=== PATIENT | female | born 1995 | race Caucasian/White ===

== ENCOUNTER 2018-04-01 13:27 | Emergency (ER) | payer OTHER ==
[2018-04-01] MEDS: NS 1,000 ML IV (14:30)
[2018-04-01 14:42] LABS: BASO # 0.1 10^3/uL (0.0-0.2); BASO % 0.8 % (0.0-1.0); EOS # 0.2 10^3/uL (0.0-0.50); EOS % 2.4 % (0.0-3.0); HEMATOCRIT 43.5 % (36.0-47.0); IMMATURE GRANULOCYTE % 0.1 % (0-3.0); LYMPH # 2.5 10^3/uL (1.5-6.5); LYMPH % 31.8 % (24.0-44.0); MEAN CORPUSCULAR HEMOGLOBIN 30.1 pg (27.0-33.0); MEAN CORPUSCULAR HGB CONC 34.5 g/dl (32.0-36.5); MEAN CORPUSCULAR VOLUME 87.3 fl (80.0-96.0); MONO # 0.5 10^3/uL (0.0-0.8); MONO % 5.8 % (0.0-5.0); NEUTROPHILS # 4.6 10^3/uL (1.8-7.7); NEUTROPHILS % 59.1 % (36.0-66.0); PLATELET COUNT, AUTOMATED 272 10^3/uL (150-450); RED BLOOD COUNT 4.98 10^6/uL (4.00-5.40); RED CELL DISTRIBUTION WIDTH 12.3 % (11.5-14.5); WHITE BLOOD COUNT 7.8 10^3/uL (4.0-10.0)
[2018-04-01 15:01] LABS: CONTROL LINE HCG INT CTR LINE PRESENT; HCG, SERUM QUALITATIVE NEGATIVE (NEGATIVE)
[2018-04-01 15:38] LABS: ANION GAP 7 MEQ/L (8-16); BLOOD UREA NITROGEN 8 MG/DL (7-18); CALCIUM LEVEL 9.1 MG/DL (8.5-10.1); CARBON DIOXIDE LEVEL 25 MEQ/L (21-32); CHLORIDE LEVEL 110 MEQ/L (98-107); CREATININE FOR GFR 0.73 MG/DL (0.55-1.30); GLOMERULAR FILTRATION RATE > 60.0 (>60); GLUCOSE, FASTING 89 MG/DL (70-100); MAGNESIUM LEVEL 2.3 MG/DL (1.8-2.4); POTASSIUM SERUM 3.9 MEQ/L (3.5-5.1); SODIUM LEVEL 142 MEQ/L (136-145); THYROID STIMULATING HORMONE 0.908 uIU/ML (0.358-3.740)
== END 2018-04-01 16:50 | disposition home or self-care (01) ==
LOC: M ED 13:27
DX: R42 Dizziness and giddiness (principal); H53.9 Unspecified visual disturbance; F17.210 Nicotine dependence, cigarettes, uncomplicated
CPT/HCPCS: 83735

== ENCOUNTER 2018-09-05 12:05 | Emergency (ER) | payer OTHER ==
[2018-09-05 12:39] LABS: BASO % 0.5 % (0.0-1.0); EOS # 0.2 10^3/uL (0.0-0.50); EOS % 1.9 % (0.0-3.0); IMMATURE GRANULOCYTE % 0.5 % (0-3.0); LYMPH # 1.8 10^3/uL (1.5-6.5); LYMPH % 23.5 % (24.0-44.0); MEAN CORPUSCULAR HEMOGLOBIN 30.5 pg (27.0-33.0); MEAN CORPUSCULAR HGB CONC 34.1 g/dl (32.0-36.5); MEAN CORPUSCULAR VOLUME 89.4 fl (80.0-96.0); MONO # 0.3 10^3/uL (0.0-0.8); NEUTROPHILS # 5.4 10^3/uL (1.8-7.7); NEUTROPHILS % 69.6 % (36.0-66.0); PLATELET COUNT, AUTOMATED 207 10^3/uL (150-450); RED BLOOD COUNT 4.92 10^6/uL (4.00-5.40); RED CELL DISTRIBUTION WIDTH 12.9 % (11.5-14.5); WHITE BLOOD COUNT 7.8 10^3/uL (4.0-10.0)
[2018-09-05 12:43] LABS: KETONE, URINE AUTO RFX NEGATIVE (NEGATIVE); LEUKOCYTE ESTERASE UR AUTO RFX NEGATIVE (NEGATIVE); NITRITE, URINE AUTO RFX NEGATIVE (NEGATIVE); RBC, URINE AUTO RFX 2 /HPF (0-3); SPECIFIC GRAVITY UR AUTO RFX 1.005 (1.002-1.035); SQUAM EPITHELIAL CELL UR AURFX 0 /HPF (0-6); WBC, URINE AUTO RFX 0 /HPF (0-3)
[2018-09-05 12:44] LABS: CONTROL LINE UCG INT CTR LINE PRESENT; URINE PREG TEST NEGATIVE (NEGATIVE)
[2018-09-05 12:54] LABS: PROTHROMBIN TIME 13.3 SECONDS (12.1-14.4)
[2018-09-05 12:55] LABS: PARTIAL THROMBOPLASTIN TIME 30.1 SECONDS (25.4-37.6)
[2018-09-05 13:07] LABS: ALBUMIN 4.5 GM/DL (3.2-5.2); ALBUMIN/GLOBULIN RATIO 1.45 (1.00-1.93); ALKALINE PHOSPHATASE 69 U/L (45-117); ALT/SGPT 13 U/L (12-78); AMYLASE 35 U/L (25-115); ANION GAP 9 MEQ/L (8-16); AST/SGOT 9 U/L (7-37); BILIRUBIN,DIRECT 0.1 MG/DL (0.0-0.2); BILIRUBIN,TOTAL 0.4 MG/DL (0.2-1.0); BLOOD UREA NITROGEN 9 MG/DL (7-18); CALCIUM LEVEL 9.2 MG/DL (8.5-10.1); CARBON DIOXIDE LEVEL 26 MEQ/L (21-32); CHLORIDE LEVEL 107 MEQ/L (98-107); CREATININE FOR GFR 0.63 MG/DL (0.55-1.30); GLOMERULAR FILTRATION RATE > 60.0 (>60); GLUCOSE, FASTING 98 MG/DL (70-100); LIPASE 191 U/L (73-393); SODIUM LEVEL 142 MEQ/L (136-145); TOTAL PROTEIN 7.6 GM/DL (6.4-8.2)
[2018-09-05] MEDS ORDERED: ISOVUE-370 76% 100ML VIAL (Q9967) As Ordered (13:56)
== END 2018-09-05 14:32 | disposition home or self-care (01) ==
LOC: M ED 12:05
DX: R10.84 Generalized abdominal pain (principal); R11.0 Nausea; F17.210 Nicotine dependence, cigarettes, uncomplicated
CPT/HCPCS: Q9967

== ENCOUNTER 2018-10-26 14:34 | Emergency (ER) | payer OTHER ==
[2018-10-26 15:15] LABS: KETONE, URINE AUTO RFX NEGATIVE (NEGATIVE); LEUKOCYTE ESTERASE UR AUTO RFX NEGATIVE (NEGATIVE); NITRITE, URINE AUTO RFX NEGATIVE (NEGATIVE); RBC, URINE AUTO RFX 1 /HPF (0-3); SPECIFIC GRAVITY UR AUTO RFX 1.004 (1.002-1.035); SQUAM EPITHELIAL CELL UR AURFX 0 /HPF (0-6); WBC, URINE AUTO RFX 1 /HPF (0-3)
[2018-10-26] MEDS: NS 1,000 ML IV (15:17)
[2018-10-26] MEDS: ONDANSETRON 4MG/2ML VIAL (J2405) IV (15:17)
[2018-10-26 15:23] LABS: BASO % 0.5 % (0.0-1.0); EOS # 0.1 10^3/uL (0.0-0.50); EOS % 1.4 % (0.0-3.0); HEMOGLOBIN 13.5 g/dl (12.0-15.5); IMMATURE GRANULOCYTE % 0.2 % (0-3.0); LYMPH # 1.2 10^3/uL (1.5-6.5); LYMPH % 27.3 % (24.0-44.0); MEAN CORPUSCULAR HEMOGLOBIN 30.3 pg (27.0-33.0); MEAN CORPUSCULAR HGB CONC 34.6 g/dl (32.0-36.5); MEAN CORPUSCULAR VOLUME 87.4 fl (80.0-96.0); MONO # 0.3 10^3/uL (0.0-0.8); MONO % 7.6 % (0.0-5.0); NEUTROPHILS # 2.7 10^3/uL (1.8-7.7); PLATELET COUNT, AUTOMATED 166 10^3/uL (150-450); RED BLOOD COUNT 4.46 10^6/uL (4.00-5.40); RED CELL DISTRIBUTION WIDTH 12.8 % (11.5-14.5); WHITE BLOOD COUNT 4.2 10^3/uL (4.0-10.0)
[2018-10-26 15:46] LABS: ALBUMIN 3.8 GM/DL (3.2-5.2); ALBUMIN/GLOBULIN RATIO 1.23 (1.00-1.93); ALKALINE PHOSPHATASE 67 U/L (45-117); ALT/SGPT 12 U/L (12-78); ANION GAP 10 MEQ/L (8-16); AST/SGOT 11 U/L (7-37); BILIRUBIN,DIRECT < 0.1 MG/DL (0.0-0.2); BILIRUBIN,TOTAL 0.3 MG/DL (0.2-1.0); BLOOD UREA NITROGEN 7 MG/DL (7-18); CALCIUM LEVEL 8.4 MG/DL (8.5-10.1); CARBON DIOXIDE LEVEL 21 MEQ/L (21-32); CHLORIDE LEVEL 109 MEQ/L (98-107); CREATININE FOR GFR 0.68 MG/DL (0.55-1.30); GLOMERULAR FILTRATION RATE > 60.0 (>60); GLUCOSE, FASTING 92 MG/DL (70-100); LIPASE 156 U/L (73-393); POTASSIUM SERUM 3.9 MEQ/L (3.5-5.1); SODIUM LEVEL 140 MEQ/L (136-145); TOTAL PROTEIN 6.9 GM/DL (6.4-8.2)
== END 2018-10-26 16:25 | disposition home or self-care (01) ==
LOC: M ED 14:34
DX: K52.9 Noninfective gastroenteritis and colitis, unspecified (principal)
CPT/HCPCS: J2405

== ENCOUNTER → 2019-03-01 | Outpatient (CLI) | payer OTHER ==
[~2019-03-01] MED LIST: ZOFR4TAB14 PO
[2019-03-01 17:53] LABS: BASO % 0.4 % (0.0-1.0); EOS # 0.1 10^3/uL (0.0-0.50); EOS % 0.8 % (0.0-3.0); HEMATOCRIT 37.3 % (36.0-47.0); HEMOGLOBIN 12.6 g/dl (12.0-15.5); LYMPH # 2.1 10^3/uL (1.5-6.5); LYMPH % 28.7 % (24.0-44.0); MEAN CORPUSCULAR HEMOGLOBIN 29.4 pg (27.0-33.0); MEAN CORPUSCULAR HGB CONC 33.8 g/dl (32.0-36.5); MEAN CORPUSCULAR VOLUME 87.1 fl (80.0-96.0); MONO # 0.4 10^3/uL (0.0-0.8); MONO % 5.3 % (0.0-5.0); NEUTROPHILS # 4.8 10^3/uL (1.8-7.7); NEUTROPHILS % 64.5 % (36.0-66.0); PLATELET COUNT, AUTOMATED 215 10^3/uL (150-450); RED BLOOD COUNT 4.28 10^6/uL (4.00-5.40); WHITE BLOOD COUNT 7.4 10^3/uL (4.0-10.0)
[2019-03-01 18:45] LABS: HEPATITIS C VIRUS ABY INDEX 0.1 INDEX (<0.8); HIV 1&2 SCREEN CENTAUR NEGATIVE (NEGATIVE); RUBELLA IgG QUALITATIVE IMMUNE (IMMUNE)
== END ==
LOC: M SMT 15:13
PROVIDERS: ATTEND Advanced Practice Midwife
DX: Z34.80 Encounter for supervision of other normal pregnancy, unspecified trimester (principal); Z3A.10 10 weeks gestation of pregnancy

== ENCOUNTER → 2019-03-01 | Outpatient (REF) | payer OTHER | LOC: M LAB REF 19:05 | PROVIDERS: ATTEND Advanced Practice Midwife | DX: Z12.4 Encounter for screening for malignant neoplasm of cervix (principal) ==

== ENCOUNTER → 2019-03-30 | Outpatient (REF) | payer OTHER ==
[2019-03-30 20:09] LABS: CHLAMYDIA DNA AMPLIFICATION NEGATIVE (NEGATIVE); GC DNA AMPLIFICATION NEGATIVE (NEGATIVE)
== END ==
LOC: M LAB REF 17:11
PROVIDERS: ATTEND Advanced Practice Midwife
DX: Z34.82 Encounter for supervision of other normal pregnancy, second trimester (principal); Z3A.00 Weeks of gestation of pregnancy not specified

== ENCOUNTER → 2019-04-21 | Outpatient (CLI) | payer OTHER ==
--- NOTE | 2019-04-21 20:04 | REP ---
Clinical: Anatomical evaluation. Comparison: None. Findings: Examination demonstrates a single live intrauterine in transverse (head to maternal left) presentation. motion is identified by technologist. Placenta is noted fundal and grade zero without evidence for placenta previa or abruption. Amniotic fluid volume is normal. Cervix measures 3.7 cm in length and appears closed. Nuchal cord cannot be excluded. Gestational age by LMP 18 weeks 0 days with DONALD 09/22/2019 . Gestational age by current measurements 18 weeks 1 day with DONALD 09/21/2019 . FHR equals 155 beats per minute. BPD 4.0 cm 18 weeks 1 day HC 14.9 cm 18 weeks 0 days AC 12.6 cm 18 weeks 1 day FL 2.7 cm 18 weeks 1 day HL 2.6 cm 18 weeks 0 days HC/AC ratio 1.19 Estimated weight 225 grams ( 52nd percentile). Anatomical assessment demonstrates normal structures including cranium, choroid plexus, cavum, cerebellum/posterior fossa, facial features, lungs, four-chamber heart/ventricular outflow tracts, diaphragm, stomach, cord insertion/three-vessel cord, kidneys/bladder, and extremities. Impression: Single live intrauterine in transverse lie demonstrating appropriate interval growth. Limited evaluation of the spine noted. Remainder of the anatomical assessment is complete and normal. Electronically Signed by Denis Lloyd MD 04/21/2019 07:56 P
== END ==
LOC: M RAD 17:01
PROVIDERS: ATTEND Advanced Practice Midwife
DX: O32.2XX0 Maternal care for transverse and oblique lie, not applicable or unspecified (principal); Z36.89 Encounter for other specified antenatal screening; Z3A.18 18 weeks gestation of pregnancy

== ENCOUNTER 2019-06-22 19:21 | Outpatient (CLI) | payer OTHER ==
[~2019-06-22] VITALS: Ht 170.2 cm; Wt 74.0 kg
[2019-06-22 19:39] VITALS: BP 112/59
--- NOTE | 2019-06-22 23:00 | IPN ---
DATE: 06/22/2019 Zainab is a 24-year-old 3, para 2-0-0-2 at 26 and 6 days weeks gestation with an estimated date of delivery (EDC) of 09/22/2019 based on last menstrual period confirmed by first trimester ultrasound. Presents to labor and delivery today with the complaint of her right leg having large blood vessels that she was concerned about. She denies vaginal bleeding, leakage of fluid and regular contractions. The fetus has been active. care initiated at [facility] in the first trimester. She has not been seen by her care provider since March 30. course complicated by a prior section times two and a history of spina bifida in her second . OBSTETRICAL HISTORY: June 2015, 41 weeks gestation, 8 pounds 5 ounces female via section Christopher. October 2016 39 weeks gestation by repeat section. Spina bifida with spontaneous closure. OBSTETRICAL HISTORY O+, antibody screen negative, rubella immune, VDRL nonreactive, B surface antigen negative, HIV negative. Hep C antibody nonreactive. Gonorrhea and chlamydia negative. She does not appear to have had any genetic screening labs done or gestational diabetic screening. PAST MEDICAL HISTORY Childhood varicella. SURGERIES section times two. Sewing needle removed from her knee. FAMILY HISTORY Noncontributory. SOCIAL HISTORY The patient is single, however, the father of the baby is at bedside. She is a nonsmoker. Denies alcohol and drug use. No history of STDs and denies history of abuse physical, sexual and emotional. ALLERGIES: No known drug allergies. MEDICATIONS Include vitamins, folic acid. OBJECTIVE Temperature 98.4, pulse 89, BP is 112/55. She is alert and oriented times three. She is in no apparent distress. heart rate is 150 with moderate variability, appropriate for gestational age. No pattern of contractions. Sterile vaginal exam deferred. Bilateral extremities inspected and noted to have bilateral multiple varicosities. Large vessels in the right femoral area. Pulses are equal bilaterally. There is no edema. They do not appear thrombosed. ASSESSMENT Intrauterine at 26 and 6 weeks. heart rate appropriate for gestational age. Bilateral lower extremity varicosities. PLAN Discharge the patient to home. I did review palliative measures for varicose veins, including the maternity support hose that she may purchase [id number] as her insurance does not cover durable medical goods. Did review signs and symptoms of labor, kick counts and access to care. The patient and her partner had all of their questions answered and agree to be discharged home.
== END 2019-06-23 03:20 | disposition home or self-care (01) ==
LOC: M LDO 19:21
PROVIDERS: ATTEND Advanced Practice Midwife
DX: O22.02 Varicose veins of lower extremity in pregnancy, second trimester (principal); Z3A.26 26 weeks gestation of pregnancy

== ENCOUNTER → 2019-06-29 | Outpatient (REF) | payer OTHER | LOC: M LAB REF 13:20 | PROVIDERS: ATTEND Advanced Practice Midwife | DX: Z34.82 Encounter for supervision of other normal pregnancy, second trimester (principal); Z3A.00 Weeks of gestation of pregnancy not specified ==

== ENCOUNTER → 2019-07-21 | Outpatient (CLI) | payer OTHER ==
[~2019-07-21] MED LIST changes: +IBUP80TA PO; +OXYC1TAB23 PO; +PREN1TAB18 PO; +TUMS500C PO
[2019-07-21 17:57] LABS: BASO % 0.4 % (0.0-1.0); EOS # 0.2 10^3/uL (0.0-0.50); EOS % 1.9 % (0.0-3.0); HEMATOCRIT 37.8 % (36.0-47.0); HEMOGLOBIN 12.6 g/dl (12.0-15.5); LYMPH # 1.7 10^3/uL (1.5-6.5); LYMPH % 15.8 % (24.0-44.0); MEAN CORPUSCULAR HGB CONC 33.3 g/dl (32.0-36.5); MEAN CORPUSCULAR VOLUME 95.9 fl (80.0-96.0); MONO # 0.6 10^3/uL (0.0-0.8); MONO % 5.8 % (0.0-5.0); PLATELET COUNT, AUTOMATED 171 10^3/uL (150-450); RED BLOOD COUNT 3.94 10^6/uL (4.00-5.40); WHITE BLOOD COUNT 10.7 10^3/uL (4.0-10.0)
== END ==
LOC: M SMT 13:12
PROVIDERS: ATTEND Advanced Practice Midwife
DX: Z34.82 Encounter for supervision of other normal pregnancy, second trimester (principal); Z3A.00 Weeks of gestation of pregnancy not specified

== ENCOUNTER → 2019-07-21 | Outpatient (CLI) | payer OTHER ==
--- NOTE | 2019-07-21 17:26 | REP ---
Clinical: Anatomical evaluation. Comparison: 04/21/2019 . Findings: Examination demonstrates a single live intrauterine in cephalic presentation. motion is identified by technologist. Placenta is noted left fundal and grade one without evidence for placenta previa or abruption. Amniotic fluid volume is normal. Cervix measures 4.1 cm in length and appears closed. Nuchal cord cannot be excluded. Gestational age by LMP 31 weeks 0 days with DONALD 09/22/2019 . Gestational age by current measurements 31 weeks 5-day with DONALD is 09/17/2019 . FHR equals 145 beats per minute. BPD 8.1 cm 32 weeks 3 days HC 30.5 cm 33 weeks 6 days AC 26.5 cm 30 weeks 4 days FL 6.0 cm 31 weeks 0 days HL 5.3 cm 31 weeks 0-day HC/AC ratio 1.15 Estimated weight 1716 grams ( 46th percentile). Amniotic fluid index: 13.1 cm (8.8 - 23.8) Umbilical cord SD ratio: 2.64 (3.30 - 4.70) Anatomical assessment demonstrates normal structures including cranium, choroid plexus, cavum, cerebellum/posterior fossa, facial features, lungs, diaphragm, stomach, cord insertion/three-vessel cord, kidneys/bladder, and spine. Impression: 1. Single live intrauterine in cephalic presentation demonstrating appropriate interval growth. In conjunction with prior examination anatomical assessment is complete and normal. 2. Nuchal cord cannot be excluded. 3. Umbilical SD ratio below normal range. Electronically Signed by Denis Lloyd MD 07/21/2019 05:18 P
== END ==
LOC: M RAD 16:27
PROVIDERS: ATTEND Advanced Practice Midwife
DX: O26.812 Pregnancy related exhaustion and fatigue, second trimester (principal); Z3A.31 31 weeks gestation of pregnancy

== ENCOUNTER 2019-09-15 05:28 | Inpatient (IN) | payer OTHER ==
[~2019-09-15] VITALS: Ht 170.2 cm; Wt 79.4 kg
[~2019-09-15 05:28] MED LIST changes: -IBUP80TA PO; -OXYC1TAB23 PO
[2019-09-15] MEDS ORDERED: LR 800 ML IV ONE (05:45)
[2019-09-15] MEDS ORDERED: LR 1,000 ML IV SCH ×2 (05:45→09:00)
[2019-09-15] MEDS ORDERED: ceFAZolin SOD 2 GM in IV 1 EA IV ONE (05:45)
[2019-09-15] MEDS ORDERED: BICITRA 30ML SOLN UDC PO ONE (05:45)
[2019-09-15 05:52] VITALS: BP 113/72
[2019-09-15 06:26] LABS: HEMATOCRIT 33.2 % (36.0-47.0); HEMOGLOBIN 11.4 g/dl (12.0-15.5); MEAN CORPUSCULAR HEMOGLOBIN 31.5 pg (27.0-33.0); MEAN CORPUSCULAR HGB CONC 34.3 g/dl (32.0-36.5); MEAN CORPUSCULAR VOLUME 91.7 fl (80.0-96.0); PLATELET COUNT, AUTOMATED 157 10^3/uL (150-450); RED BLOOD COUNT 3.62 10^6/uL (4.00-5.40); WHITE BLOOD COUNT 14.6 10^3/uL (4.0-10.0)
[2019-09-15] MEDS ORDERED: OXYTOCIN INJ 10 UNITS/ML VIAL (J2590) As Ordered ONE ×2 (07:15→07:16)
[2019-09-15] MEDS ORDERED: MORPHINE PRES-FREE INJ 10 MG/10 ML VIAL (J2274) As Ordered ONE (07:18)
[2019-09-15] MEDS ORDERED: OXYC1TAB23 PO (07:26)
[2019-09-15] MEDS ORDERED: ONDANSETRON 4MG/2ML VIAL (J2405) As Ordered ONE (07:51)
[2019-09-15] MEDS ORDERED: ePHEDrine SULFATE 25 MG/5 ML(5MG/ML) SYRINGE As Ordered ONE (07:56)
[2019-09-15] MEDS ORDERED: KETOROLAC 60 MG/2 ML VIAL (J1885) As Ordered ONE (08:20)
[2019-09-15] MEDS ORDERED: ONDANSETRON 4MG/2ML VIAL (J2405) IV PRN ×2 (08:45→09:00)
[2019-09-15] MEDS: PRENATAL VITAMINS CHEWABLE TABLET PO SCH (09:00)
[2019-09-15] MEDS ORDERED: PERCOCET 5MG/325MG TAB PO PRN (09:00)
[2019-09-15] MEDS ORDERED: fentaNYL 100 MCG/2 ML INJECTION (J3010) IV PRN (09:00)
[2019-09-15] MEDS ORDERED: KETOROLAC 30 MG/ML VIAL (J1885) IV PRN (09:00)
[2019-09-15] MEDS ORDERED: OXYTOCIN 30 UNITS IN 0.9% NaCl 500ML IV BAG (J2590) As Ordered ONE (09:19)
--- NOTE | 2019-09-15 09:36 | RO ---
DATE OF PROCEDURE: 09/15/2019 PREPROCEDURE DIAGNOSIS: 39 weeks, prior section times two. POSTPROCEDURE DIAGNOSIS: 39 weeks, prior section times two. PROCEDURE: Repeat low transverse section. SURGEON: Dr. Iban Adams ROLL WRAPPER: Rach Terrell CNM ANESTHESIA: Spinal. ESTIMATED BLOOD LOSS: 500 mL. URINE OUTPUT: 100 mL. FINDINGS: 6 pound 11 ounce, 3020 gram, male , Apgars 9 and 9, vertex. Normal uterus, fallopian tubes and ovaries. DESCRIPTION OF PROCEDURE: The patient was taken to the operating room where spinal anesthesia was induced. She was prepped and draped in sterile fashion in the supine position. A Maza catheter was placed. A Pfannenstiel skin incision was made with the scalpel and carried through to the fascia. The fascia was nicked and extended. The fascia was dissected off the rectus muscles. The peritoneal cavity was entered. A bladder flap was created. A curvilinear incision was made in the lower uterine segment until clear fluid was noted. This was extended manually. The was delivered from the vertex position without difficulty. The cord was doubly clamped and cut. The infant was handed off to the awaiting nurses. The placenta was expressed. The uterus was exteriorized and cleared of clots and debris. The uterine incision was closed with #0 Vicryl in a running locked fashion. A second imbricating layer of #0 Vicryl was placed. The uterus was placed back in the abdominal cavity. The peritoneum was closed with #2-0 Vicryl in a running fashion. The fascia was closed with #0 Vicryl in a running fashion. The deep layer was irrigated. The skin was closed with #4-0 Monocryl subcuticular sutures. Sponge, instrument and needle counts were correct. Rach Terrell CNM, assisted throughout the procedure. She helped create each layer of the incision. She helped expel the fetus and close all layers. She was indispensable for the procedure.
[2019-09-15] MEDS ORDERED: RHOGAM 300 MCG (1500 IU) INJ (J2790) IM SCH (10:00)
[2019-09-15] MEDS ORDERED: OXYTOCIN DRIP 30 UNITS in IV 1 EA IV SCH (10:00)
[2019-09-15] MEDS ORDERED: MEASLES,MUMPS,RUBELLA VACCINE INJ (MMR-II) (90707) SC SCH (10:00)
[2019-09-15 10:15] VITALS: BP 111/71
[2019-09-15] MEDS: PERCOCET 5MG/325MG TAB PO PRN ×2 (10:37→17:37)
[2019-09-15 10:45] VITALS: BP 116/76
[2019-09-15] MEDS: LR 1,000 ML IV SCH ×2 (10:47→18:00)
[2019-09-15 12:45] VITALS: BP 127/77
[2019-09-15] MEDS: KETOROLAC 30 MG/ML VIAL (J1885) IV SCH ×2 (14:02→20:11)
[2019-09-15 18:00] VITALS: BP 121/70
[2019-09-15 21:54] VITALS: BP 122/62
[2019-09-16] MEDS: PERCOCET 5MG/325MG TAB PO PRN ×3 (00:52→19:32)
[2019-09-16] MEDS: KETOROLAC 30 MG/ML VIAL (J1885) IV SCH (01:58)
[2019-09-16 02:00] VITALS: BP 111/63
[2019-09-16 05:45] VITALS: BP 117/74
--- NOTE | 2019-09-16 07:08 | IPNPDOC ---
Text Note Date of Service The patient was seen on 09/16/19. NOTE PO #1 Adequate pain management. . OOB independently. Voiding and passing flatus VSS, afebrile, normotensive CBC pending Breasts soft, nipples intact Fundus firm, NT Dressing intact, old drainage noted Lochia rubra light without odor PO #1, routine care. Anticipate D/C in am VS,Fishbone, I+O VS, Fishbone, I+O Vital Signs Date Time Temp Pulse Resp B/P (MAP) Pulse Ox O2 Delivery O2 Flow Rate FiO2 09/16/19 05:45 98.6 81 16 117/74 (88) 98 Room Air I&O- Last 24 Hours up to 6 AM 09/16/19 06:00 Intake Total 1225 ml Output Total 2250 ml Balance -1025 ml Asya Serrato CNM Sep 16, 2019 07:08
[2019-09-16 07:13] LABS: HEMATOCRIT 29.6 % (36.0-47.0); HEMOGLOBIN 10.1 g/dl (12.0-15.5); MEAN CORPUSCULAR HEMOGLOBIN 31.5 pg (27.0-33.0); MEAN CORPUSCULAR HGB CONC 34.1 g/dl (32.0-36.5); MEAN CORPUSCULAR VOLUME 92.2 fl (80.0-96.0); PLATELET COUNT, AUTOMATED 121 10^3/uL (150-450); RED BLOOD COUNT 3.21 10^6/uL (4.00-5.40); WHITE BLOOD COUNT 12.4 10^3/uL (4.0-10.0)
[2019-09-16] MEDS ORDERED: INFLUENZA QUADRIVALENT PF VACCINE 0.5ML SYRINGE (90686) IM ONE (09:00)
[2019-09-16] MEDS: PRENATAL VITAMINS CHEWABLE TABLET PO SCH (09:53)
[2019-09-16 10:00] VITALS: BP 110/63
[2019-09-16] MEDS: IBUPROFEN 800 MG TAB PO SCH ×2 (10:12→17:42)
[2019-09-16 14:00] VITALS: BP 111/62
[2019-09-16 17:59] VITALS: BP 103/50
[2019-09-16 22:11] VITALS: BP 111/58
[2019-09-17] MEDS: IBUPROFEN 800 MG TAB PO SCH (01:48)
[2019-09-17 02:10] VITALS: BP 92/50
[2019-09-17] MEDS: PERCOCET 5MG/325MG TAB PO PRN ×2 (04:16→08:18)
[2019-09-17 06:18] VITALS: BP 109/59
[2019-09-17] MEDS ORDERED: IBUP80TA PO (07:37)
--- NOTE | 2019-09-17 08:16 | DSES ---
DATE OF ADMISSION: 09/15/2019 DATE OF DISCHARGE: 09/17/2019 DISCHARGE DIAGNOSIS 1. Repeat section. PROCEDURES PERFORMED WHILE IN HOSPITAL: 1. Spinal anesthesia. 2. section. DISCHARGE CONDITION: Stable. HISTORY AND HOSPITAL COURSE: Miss Gill presented for scheduled section. She had a history of two prior sections. She underwent uncomplicated section productive of a liveborn male infant, scores nine and nine, weight was 6 pounds 11 ounces, 3020 grams. Estimated blood loss was 500 mL. Miss Gill did well postoperatively. By postoperative day 2 had met all discharge criteria and was discharged home in stable condition. PHYSICAL EXAM ON DAY OF DISCHARGE: Her vital signs were stable. She was afebrile. GENERAL APPEARANCE: Well appearing in no acute distress. ABDOMEN: Soft, appropriately tender. Her incision was dressed. EXTREMITIES: Negative for calf tenderness. DISCHARGE INSTRUCTIONS: 1. She instructed to follow up in 2 weeks for incision check. 2. To report severe pain, heavy vaginal bleeding or fever. 3. Remain on pelvic rest. DISCHARGE MEDICATIONS: - ibuprofen - Percocet
[2019-09-17] MEDS: PRENATAL VITAMINS CHEWABLE TABLET PO SCH (08:18)
[2019-09-17 10:00] VITALS: BP 109/58
== END 2019-09-17 11:40 | disposition home or self-care (01) | DRG 540 ==
LOC: M LDI 05:28 → M OBS 10:27
PROVIDERS: ADMIT Specialist; ATTEND Specialist
PROC: 10D00Z1 Extraction of Products of Conception, Low, Open Approach (ICD-10-PCS; principal; 2019-09-15 07:30)
DX: O34.211 Maternal care for low transverse scar from previous cesarean delivery (principal); Z3A.39 39 weeks gestation of pregnancy; Z37.0 Single live birth

== ENCOUNTER → 2019-10-09 | Outpatient (REF) | payer OTHER ==
[~2019-10-09] MED LIST changes: +IBUP80TA PO; +OXYC1TAB23 PO
== END ==
LOC: M LAB REF 16:37
PROVIDERS: ATTEND Advanced Practice Midwife
DX: R30.0 Dysuria (principal); R39.15 Urgency of urination

== ENCOUNTER → 2021-01-07 | Outpatient (REF) | LOC: M LABSMTC 13:52 | PROVIDERS: ATTEND Pediatrics | DX: Z20.822 Contact with and (suspected) exposure to COVID-19 (principal) ==

== ENCOUNTER 2021-12-28 12:08 | Inpatient (IN) | payer OTHER ==
[~2021-12-28] VITALS: Ht 170.2 cm; Wt 69.1 kg
[2021-12-28] MEDS ORDERED: NS 1,000 ML IV SCH ×2 (12:30→14:35)
[2021-12-28 12:52] LABS: BASO # 0.1 10^3/uL (0.0-0.2); BASO % 0.8 % (0.0-1.0); EOS # 0.1 10^3/uL (0.0-0.5); EOS % 1.6 % (0.0-3.0); HEMOGLOBIN 14.9 g/dl (12.0-15.5); LYMPH # 1.9 10^3/uL (1.5-5.0); LYMPH % 25.1 % (24.0-44.0); MEAN CORPUSCULAR HEMOGLOBIN 30.3 pg (27.0-33.0); MEAN CORPUSCULAR HGB CONC 33.1 g/dl (32.0-36.5); MEAN CORPUSCULAR VOLUME 91.5 fl (80.0-96.0); MONO # 0.5 10^3/uL (0.0-0.8); MONO % 7.1 % (2.0-8.0); NEUTROPHILS # 4.9 10^3/uL (1.5-8.5); NEUTROPHILS % 65.1 % (36.0-66.0); PLATELET COUNT, AUTOMATED 215 10^3/uL (150-450); RED BLOOD COUNT 4.92 10^6/uL (4.00-5.40); WHITE BLOOD COUNT 7.5 10^3/uL (4.0-10.0)
[2021-12-28 13:10] LABS: AMPHETAMINES LEVEL URINE NEGATIVE (NEGATIVE); BARBITURATES URINE NEGATIVE (NEGATIVE); BENZODIAZEPINES URINE NEGATIVE (NEGATIVE); CANNABINOIDS URINE NEGATIVE (NEGATIVE); COCAINE METABOLITE URINE NEGATIVE (NEGATIVE); METHADONE URINE NEGATIVE (NEGATIVE); OPIATES URINE NEGATIVE (NEGATIVE); PHENCYCLIDINE URINE NEGATIVE (NEGATIVE)
[2021-12-28 13:23] LABS: HCG, SERUM QUALITATIVE NEGATIVE (NEGATIVE)
[2021-12-28] MEDS ORDERED: ACETYLCYSTEINE 10,500 MG in D5W 250 ML IV ONE (13:30)
[2021-12-28 13:33] LABS: ACETAMINOPHEN LEVEL 3.7 UG/ML (10.0-30.0); ALBUMIN 4.3 GM/DL (3.2-5.2); ALT/SGPT 26 U/L (12-78); BILIRUBIN,DIRECT 0.2 MG/DL (0.0-0.2); BILIRUBIN,TOTAL 0.6 MG/DL (0.2-1.0); BLOOD UREA NITROGEN 6 MG/DL (7-18); CALCIUM LEVEL 9.2 MG/DL (8.5-10.1); CARBON DIOXIDE LEVEL 25 MEQ/L (21-32); CHLORIDE LEVEL 106 MEQ/L (98-107); GLOMERULAR FILTRATION RATE > 60.0 (>60); GLUCOSE, FASTING 100 MG/DL (70-100); POTASSIUM SERUM 4.2 MEQ/L (3.5-5.1); SALICYLATE LEVEL < 1.7 MG/DL (5.0-30.0); SODIUM LEVEL 140 MEQ/L (136-145); TOTAL PROTEIN 7.9 GM/DL (6.4-8.2)
[2021-12-28 13:34] LABS: ETHYL ALCOHOL (ETHANOL) < 0.003 % (0.000-0.010)
[2021-12-28] MEDS ORDERED: ACETYLCYSTEINE 0 MG in D5W 250 ML IV ONE (14:00)
[2021-12-28] MEDS ORDERED: HOME MED LIST COMPLETE! XX SCH (14:20)
[2021-12-28] MEDS ORDERED: ACETYLCYSTEINE 3,500 MG in D5W 500 ML IV ONE (15:00)
[2021-12-28 16:00] VITALS: BP 127/72
[2021-12-28] MEDS ORDERED: ACETYLCYSTEINE 7,000 MG in D5W 1,000 ML IV ONE (19:00)
[2021-12-28 19:11] LABS: ALBUMIN 3.3 GM/DL (3.2-5.2); ALT/SGPT 31 U/L (12-78); BILIRUBIN,TOTAL 0.5 MG/DL (0.2-1.0); BLOOD UREA NITROGEN 4 MG/DL (7-18); CALCIUM LEVEL 8.2 MG/DL (8.5-10.1); CARBON DIOXIDE LEVEL 25 MEQ/L (21-32); CHLORIDE LEVEL 107 MEQ/L (98-107); CREATININE FOR GFR 0.54 MG/DL (0.55-1.30); GLOMERULAR FILTRATION RATE > 60.0 (>60); GLUCOSE, FASTING 107 MG/DL (70-100); POTASSIUM SERUM 3.3 MEQ/L (3.5-5.1); SODIUM LEVEL 139 MEQ/L (136-145); TOTAL PROTEIN 6.4 GM/DL (6.4-8.2)
[2021-12-28 20:00] VITALS: BP 115/68
[2021-12-28] MEDS ORDERED: KETOROLAC 30 MG/ML 1ML VIAL IV ONE (20:25)
[2021-12-28] MEDS ORDERED: NICOTINE 21MG/24HR 1 EA TRANSDERMAL TD PRN (20:25)
[2021-12-28] MEDS ORDERED: POTASSIUM CHLORIDE 10MEQ SR TABLET PO ONE (22:45)
[2021-12-28 23:22] VITALS: BP 117/66
[2021-12-29 05:49] LABS: HEMATOCRIT 37.5 % (36.0-47.0); MEAN CORPUSCULAR HEMOGLOBIN 30.8 pg (27.0-33.0); MEAN CORPUSCULAR HGB CONC 33.9 g/dl (32.0-36.5); MEAN CORPUSCULAR VOLUME 90.8 fl (80.0-96.0); PLATELET COUNT, AUTOMATED 173 10^3/uL (150-450); RED BLOOD COUNT 4.13 10^6/uL (4.00-5.40); WHITE BLOOD COUNT 6.9 10^3/uL (4.0-10.0)
[2021-12-29 06:00] VITALS: BP 125/88
[2021-12-29 06:00] LABS: HEMOGLOBIN 12.7 g/dl (12.0-15.5); INR 1.09; PROTHROMBIN TIME 14.5 SECONDS (12.7-14.5)
[2021-12-29 06:24] LABS: ALBUMIN 3.1 GM/DL (3.2-5.2); ALT/SGPT 35 U/L (12-78); BILIRUBIN,TOTAL 0.6 MG/DL (0.2-1.0); BLOOD UREA NITROGEN 3 MG/DL (7-18); CALCIUM LEVEL 8.3 MG/DL (8.5-10.1); CARBON DIOXIDE LEVEL 21 MEQ/L (21-32); CHLORIDE LEVEL 111 MEQ/L (98-107); CREATININE FOR GFR 0.45 MG/DL (0.55-1.30); GLOMERULAR FILTRATION RATE > 60.0 (>60); GLUCOSE, FASTING 77 MG/DL (70-100); POTASSIUM SERUM 3.4 MEQ/L (3.5-5.1); SODIUM LEVEL 140 MEQ/L (136-145); TOTAL PROTEIN 6.1 GM/DL (6.4-8.2)
[2021-12-29] MEDS ORDERED: POTASSIUM CHLORIDE 10MEQ SR TABLET PO ONE (12:00)
[2021-12-29 15:05] LABS: MAGNESIUM LEVEL 1.7 MG/DL (1.7-2.2)
== END 2021-12-29 14:54 | DRG 812 ==
LOC: M ED 12:08 → M ED INP 13:59 → M PCU 16:07 → M MSPAV 23:22
PROVIDERS: ADMIT Internal Medicine; ATTEND Internal Medicine
DX: T39.1X2A Poisoning by 4-Aminophenol derivatives, intentional self-harm, initial encounter (principal); F32.A Depression, unspecified; F17.210 Nicotine dependence, cigarettes, uncomplicated; R11.0 Nausea

== ENCOUNTER 2021-12-29 11:47 | Inpatient (IN) | payer MEDICAID, OTHER ==
[~2021-12-29] VITALS: Ht 170.2 cm; Wt 62.2 kg
[2021-12-29] MEDS ORDERED: MOM 30ML SUSPENSION UDC PO PRN (13:05)
[2021-12-29] MEDS ORDERED: hydrOXYzine 50 MG TAB PO PRN (13:05)
[2021-12-29] MEDS ORDERED: MAALOX 30 ML SUSP *UDC PO PRN (13:05)
[2021-12-29 15:02] VITALS: BP 118/73
[2021-12-29 18:19] VITALS: BP 108/58
[2021-12-29] MEDS: IBUPROFEN 400MG TAB PO PRN ×2 (21:00→21:57)
[2021-12-30 07:04] VITALS: BP 112/64
[2021-12-30] MEDS: SERTRALINE HCL 25 MG TABLET PO SCH (08:59)
[2021-12-30] MEDS: NICOTINE 14 MG/24 HR TRANSDERMAL TD SCH (10:08)
[2021-12-30 12:08] LABS: BLOOD UREA NITROGEN 6 MG/DL (7-18); CALCIUM LEVEL 8.9 MG/DL (8.5-10.1); CARBON DIOXIDE LEVEL 24 MEQ/L (21-32); CHLORIDE LEVEL 111 MEQ/L (98-107); CREATININE FOR GFR 0.64 MG/DL (0.55-1.30); GLOMERULAR FILTRATION RATE > 60.0 (>60); GLUCOSE, FASTING 83 MG/DL (70-100); POTASSIUM SERUM 4.1 MEQ/L (3.5-5.1); SODIUM LEVEL 143 MEQ/L (136-145)
[2021-12-30] MEDS: traZODone 50 MG TAB PO PRN (20:12)
[2021-12-30] MEDS: IBUPROFEN 400MG TAB PO PRN (20:13)
[2021-12-31 06:05] VITALS: BP 127/63
[2021-12-31] MEDS: NICOTINE 14 MG/24 HR TRANSDERMAL TD SCH (08:57)
[2021-12-31] MEDS: SERTRALINE HCL 25 MG TABLET PO SCH (08:57)
[2021-12-31] MEDS ORDERED: SERTRALINE HCL 25 MG TABLET PO ONE (10:25)
[2021-12-31] MEDS: guaiFENesin ER 600 MG TAB PO SCH ×2 (11:55→21:44)
[2021-12-31 17:43] VITALS: BP 124/61
[2022-01-01] MEDS: traZODone 50 MG TAB PO PRN (00:44)
[2022-01-01 06:21] VITALS: BP 125/60
[2022-01-01] MEDS ORDERED: SERT25TA21 PO (08:08)
[2022-01-01] MEDS ORDERED: TRAZ-252 PO (08:08)
[2022-01-01] MEDS ORDERED: NICO14PA TD (08:08)
[2022-01-01] MEDS: guaiFENesin ER 600 MG TAB PO SCH (08:25)
[2022-01-01] MEDS: NICOTINE 14 MG/24 HR TRANSDERMAL TD SCH (08:25)
[2022-01-01] MEDS ORDERED: SERTRALINE HCL 25 MG TABLET PO SCH (09:00)
[2022-01-02] MEDS ORDERED: SERT-141 PO (11:20)
== END 2022-01-01 11:23 | disposition home or self-care (01) | DRG 754 ==
LOC: M PSY 14:57
PROVIDERS: ADMIT Student in an Organized Health Care Education/Training Program; ATTEND Student in an Organized Health Care Education/Training Program
DX: F32.9 Major depressive disorder, single episode, unspecified (principal); F41.9 Anxiety disorder, unspecified; Z91.51 Personal history of suicidal behavior; F17.200 Nicotine dependence, unspecified, uncomplicated